=== PATIENT | male | born 1930 | race Caucasian/White ===

== ENCOUNTER 2016-06-27 16:38 | Inpatient (IN) ==
[2016-06-28 05:24] LABS: INR 4.1
[2016-06-28 05:26] LABS: Activated Partial Thrombo Time 52.2 Seconds (26.0-36.0)
[2016-06-28 05:32] LABS: BUN/Creatinine Ratio 19 (6-26); Blood Urea Nitrogen 17 mg/dL (8-26); Calcium 9.1 mg/dL (8.6-10.8); Carbon Dioxide 22 mEq/L (19-29); Chloride 108 mEq/L (98-109); Glucose 110 mg/dL (70-99); Osmolality,Calculated 294 (280-300); Potassium 3.8 mEq/L (3.5-4.5); Sodium 141 mEq/L (136-145); eGFR For African Americans > 60 (> 60); eGFR For Non-African Americans > 60 (> 60)
[2016-06-28 05:34] LABS: Basophils # 0.1 K/mcL (0.0-0.2); Basophils % 0.6 %; Eosinophils # 0.3 K/mcL (0.0-0.6); Eosinophils % 2.7 %; Hematocrit 44.3 % (37.5-50.1); Hemoglobin 14.7 g/dL (12.9-16.9); Immature Granulocytes % 0.4 % (0-4); Lymphocytes # 1.7 K/mcL (0.6-4.6); Lymphocytes % 16.5 %; Mean Corpuscular HGB Conc 33.2 g/dL (31.6-35.5); Mean Corpuscular Hemoglobin 27.4 pg (28.0-33.3); Mean Corpuscular Volume 82.6 fL (83.0-100.0); Mean Platelet Volume 11.6 fL (9.4-12.4); Monocytes % 9.4 %; Neutrophils # 7.3 K/mcL (1.6-8.9); Platelet Count 205 K/mcL (140-400); Red Blood Count 5.36 M/mcL (4.19-5.50); Red Cell Distribution Width 13.5 % (11.5-14.5); Segmented Neutrophils % 70.4 %
[2016-06-28 05:35] LABS: Prothrombin Time 46.6 Seconds (9.4-12.1)
[2016-06-28] MEDS: Aspirin 81 MG TAB.CHEW PO SCH (08:43)
[2016-06-28] MEDS: Loratadine 10 MG TABLET PO SCH (08:43)
[2016-06-28] MEDS: *HR* Digoxin 0.25 MG TABLET PO SCH (08:45)
--- NOTE | 2016-06-28 11:26 | Internal Med History&Physical ---
Date of Encounter: 06/28/16 Time of Encounter: 11:24 Assessment and Plan (1) H/O: CVA (cerebrovascular accident) Current visit: No Status: Acute (2) Physical deconditioning Current visit: No Status: Acute Patient is deconditioning from recent CVA. Internal Medicine - H&P: HPI Chief complaint: Patient had a CVA. [facility] Admitted From: Hospital to Hospital Transfer History of present illness: Mr. Noe is a 86 year old male History of a recent CVA as here for rehabilitation. Past Med Surg Social Fam HX - Past Medical History Medical history: atrial fibrillation, CVA, hyperlipidemia, hypertension Psychiatric history: no psych history - Past Surgical History Surgical History: arthroscopy, pacemaker/AICD - Social History Smoking Status: Former smoker - Family History Mother History Unknown: Yes Father History Unknown: Yes Internal Medicine - H&P: Meds Digoxin [Lanoxin] 0.25 mg PO DAILY 04/14/15 [History] Donepezil [Aricept] 5 mg PO HS 04/14/15 [History] Metoprolol [Lopressor] 50 mg PO BID 04/14/15 [History] Omeprazole [PriLOSEC] 40 mg PO DAILY 04/14/15 [History] Simvastatin [Zocor] 40 mg PO HS 04/14/15 [History] Tamsulosin [Flomax] 0.4 mg PO DAILY 04/14/15 [History] Warfarin [Coumadin] 2.5 mg PO 1800 04/14/15 [History] Aspirin 81 mg PO DAILY 06/27/16 [History] Cetirizine HCl [Zyrtec] 10 mg PO DAILY 06/27/16 [History] TraZODone 50 mg PO HS 06/27/16 [History] Allergies No Known Allergies Allergy (Verified 04/14/15 19:27) All Systems PM: A 10-system review of systems was performed and is negative for pertinent findings except as documented above in the HPI. - Constitutional Vitals: Temp Pulse Resp BP Pulse Ox 98.1 F 61 16 153/77 95 06/28/16 07:33 06/28/16 07:33 06/28/16 07:33 06/28/16 07:33 06/28/16 07:33 - Head Head exam: Present: atraumatic, normal inspection, normocephalic - Neck Neck exam general surgery: Present: supple, trachea midline. Absent: lymphadenopathy Internal Med - H&P Results - Labs CBC & Chem 7: 06/28/16 05:15 06/28/16 05:15 Labs: Short CBC 06/28/16 Range/Units 05:15 WBC 10.3 (4.3-11.1) K/mcL Hgb 14.7 (12.9-16.9) g/dL Hct 44.3 (37.5-50.1) % Plt Count 205 (140-400) K/mcL Neutrophils # 7.3 (1.6-8.9) K/mcL BMP 06/28/16 05:15 Sodium 141 Potassium 3.8 Chloride 108 Carbon Dioxide 22 BUN 17 Creatinine 0.88 Glucose 110 H Calcium 9.1 Lab looks good
[2016-06-29 05:28] LABS: INR 3.7; Prothrombin Time 41.5 Seconds (9.4-12.1)
[2016-06-29] MEDS: Aspirin 81 MG TAB.CHEW PO SCH (08:08)
[2016-06-29] MEDS: *HR* Digoxin 0.25 MG TABLET PO SCH (08:08)
[2016-06-29] MEDS: Loratadine 10 MG TABLET PO SCH (08:08)
--- NOTE | 2016-06-29 13:20 | Internal Med Progress Note ---
Date of Encounter: 06/29/16 Time of Encounter: 13:18 - Assessment and plan (1) H/O: CVA (cerebrovascular accident) Current Visit: No Status: Acute Assessment and plan: Patient's working with PT OT TR and speech . (2) Physical deconditioning Current Visit: No Status: Acute Assessment and plan: Patient very deconditioned - Time Spent With Patient less than 15 minutes - Subjective Interval history: Jason Strine but he is obviously very deconditioned and has not done much prior to this episode and gets tired very easily. We did discuss his care at patient care conference and Dr. Briones has elected to start some - Constitutional Vitals: Temp Pulse Resp BP Pulse Ox 97.5 F L 84 18 172/63 95 06/29/16 07:34 06/29/16 07:34 06/29/16 07:34 06/29/16 07:34 06/29/16 07:34 - Head Head exam: Present: atraumatic, normal inspection, normocephalic - Neck Neck exam general surgery: Present: supple, trachea midline. Absent: lymphadenopathy - Respiratory Respiratory exam: Present: CTAB. Absent: accessory muscle use, rales, rhonchi, wheezes - Cardiovascular Cardiovascular exam: Present: RRR, +S1, +S2. Absent: diastolic murmur, gallop, rubs, systolic murmur Internal Medicine: Result - Labs CBC & Chem 7: 06/28/16 05:15 06/28/16 05:15 Labs: Labs doing okay - ABG Interpretation ABG results: PT/INR, D-dimer PT 41.5 Seconds (9.4-12.1) H 06/29/16 05:20 Consult Discharge Plan - Plan Referrals: Jody Blanco, SCALE MANAGER [Primary Care Provider] -
--- NOTE | 2016-06-29 15:03 | Physcial Medicine-Consult Note ---
Date of Encounter: 06/29/16 Time of Encounter: 15:01 Physical Medicine - AP (1) H/O: CVA (cerebrovascular accident) Status: Acute Assessment and plan: 1. Rehab: Mr. Noe initially had significant problems with hypersomnolence on admission. Currently, he is more alert and involved with therapy. We will continue with intensive PT/OT/ST/TR. Full assessment of his functional status was limited due to somnolence initially. We will continue with therapy and determine a discharge date next week. Code(s): Z86.73 - Personal history of transient ischemic attack (TIA), and cerebral infarction without residual deficits SNOMED Code(s): 361883522 Physical Medicine - HPI - Data of Consult Consult date: 06/29/16 Requesting Physician: Kannan Castillo DO Primary Care Provider: Kelli Lopez - Consult Narrative Reason for consult: CVA History of present illness: Mr. Noe is a 86 year old male who initially presented to [facility] with a 3 day history of confusion, slurred speech, ataxia and somnolence. 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 Patient was unable to undergo mri due to PPM. Patient was continued on coumadin and aspririn. He was stabilized and transferred for inpatient rehabilitation. CC: Kannan Castillo DO Past Med Surg Social Fam HX - Past Medical History Medical history: atrial fibrillation, CVA, hyperlipidemia, hypertension Psychiatric history: no psych history - Past Surgical History Surgical History: arthroscopy, pacemaker/AICD - Social History Smoking Status: Former smoker - Family History Mother History Unknown: Yes Father History Unknown: Yes Medications and Allergies Digoxin [Lanoxin] 0.25 mg PO DAILY 04/14/15 [History] Donepezil [Aricept] 5 mg PO HS 04/14/15 [History] Metoprolol [Lopressor] 50 mg PO BID 04/14/15 [History] Omeprazole [PriLOSEC] 40 mg PO DAILY 04/14/15 [History] Simvastatin [Zocor] 40 mg PO HS 04/14/15 [History] Tamsulosin [Flomax] 0.4 mg PO DAILY 04/14/15 [History] Warfarin [Coumadin] 2.5 mg PO 1800 04/14/15 [History] Aspirin 81 mg PO DAILY 06/27/16 [History] Cetirizine HCl [Zyrtec] 10 mg PO DAILY 06/27/16 [History] TraZODone 50 mg PO HS 06/27/16 [History] Allergies No Known Allergies Allergy (Verified 04/14/15 19:27) - Constitutional Constitutional: Present: daytime sleepiness. Absent: headache(s) - Cardiovascular Cardiovascular: Absent: chest pain, diaphoresis, dyspnea - Respiratory Respiratory: Absent: dyspnea - Gastrointestinal Gastrointestinal: Absent: abdominal pain, change in bowel habits - Musculoskeletal Musculoskeletal: Present: abnormal gait - Neurological Neurological: Present: confusion, lack of coordination Physical Medicine - Exam - Constitutional Vitals: Temp Pulse Resp BP Pulse Ox 97.5 F L 84 18 172/63 95 06/29/16 07:34 06/29/16 07:34 06/29/16 13:00 06/29/16 07:34 06/29/16 07:34 Exam: Patient is alert, very hard of hearing. He answers questions appropriately. Able to follow 1 step commands. - Head Head exam: Present: normal inspection, normocephalic Additional comments: honing machine set up operator intact. No facial droop. - Respiratory Respiratory exam: Present: CTAB - Cardiovascular Cardiovascular exam: Present: RRR - GI/Abdominal GI/Abdominal exam: Present: normal bowel sounds, soft. Absent: tenderness - Extremities Exam Extremities exam: Absent: calf tenderness Additional comments: Reflexes are absent in the upper and lower limbs. Motor strength is 5/5 in the bilateral upper and lower limbs. Physical Medicine - Results - Labs CBC & Chem 7: 06/28/16 05:15 06/28/16 05:15 Consult Discharge Plan - Plan Referrals: Jody Blanco, STOCKROOM INVENTORY CLERK [Primary Care Provider] -
--- NOTE | 2016-06-29 16:40 | Psychological Evaluation ---
Date of Encounter: 06/29/16 Time of Encounter: 15:00 History of Present Illness History of present illness: Mr. Noe is an 86 year old male admitted to [facility] for rehabilitation following a recent CVA. Mr. Noe was seen on this date to assess his current emotional functioning as he has been noted to express thoughts of /dying. Past Medical History Medical history: Significant for atrial fibrillation, hyperlipidemia, HTN, and CVA. - Psychiatric History Additional Psychiatric History: There is no history of psychiatric hospitalization but Mr. Noe reported a history of depression. He denied current or past thoughts of suicide and he denied any current suicidal intentions or plans. He acknowledged that he wants to "get my ass in the graveyard" but stated that he would never take his own life. There is no history of a suicide attempt. Home Medications and Allergies Digoxin [Lanoxin] 0.25 mg PO DAILY 04/14/15 [History] Donepezil [Aricept] 5 mg PO HS 04/14/15 [History] Metoprolol [Lopressor] 50 mg PO BID 04/14/15 [History] Omeprazole [PriLOSEC] 40 mg PO DAILY 04/14/15 [History] Simvastatin [Zocor] 40 mg PO HS 04/14/15 [History] Tamsulosin [Flomax] 0.4 mg PO DAILY 04/14/15 [History] Warfarin [Coumadin] 2.5 mg PO 1800 04/14/15 [History] Aspirin 81 mg PO DAILY 06/27/16 [History] Cetirizine HCl [Zyrtec] 10 mg PO DAILY 06/27/16 [History] TraZODone 50 mg PO HS 06/27/16 [History] Allergies No Known Allergies Allergy (Verified 04/14/15 19:27) Social History - Social History Social History: Mr. Noe was living in a shelter/senior housing prior to his stroke. His reportedly 4-5 years ago. They had 6 children, 3 of whom are still living (2 daughters and 1 son). Mr. Noe reported that he is close to one of his daughters (Angelika) and his son (Venancio) but not as close to his other daughter (Ana). He stated that Angelika manages his finances and personal affairs. Prior to this hospitalization, he lived alone with assistance from Angelika. He was able to prepared his own breakfast but Angelika would cook his other meals and visit daily. He spent his days watching TV because "can't do much". 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 His dream [place] to [place] but he recognizes that this is unlikely. - Tobacco Use Smoking Status: Former smoker Cognitive/Emotional Assessment - Emotional Status Additional Findings: Mr. Noe was alert, attentive, cooperative and pleasant. He was oriented for person (name, age and birthdate), place (town) and partially for time (knew the year but not the month or date). Speech was muffled and unintelligible at times. He has a hearing impairment and wears hearing aids. He was noted to curse freely. Thought processes were coherent, logical and goal-directed. There were no signs of delusional ideation or perceptual disturbances. Mood was depressed and affect was tearful. He presented as pessimistic about his future and unhappy about his life, his health and his limitations. He also expressed his lack of jasmyne in the medical profession/physicians. 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 Noe was provided information regarding stroke recovery and he was provided emotional supportive counseling to address his feelings of discouragement. Will continue to follow Mr. Noe and provide individual adjustment counseling/emotional support while he is an inpatient at [facility]. Procedures - Session Time Session Start Time: 15:00 Session Stop Time: 15:35
[2016-06-29] MEDS: *HR* Warfarin 2.5 MG TABLET PO SCH (18:19)
[2016-06-30 07:49] LABS: Prothrombin Time 33.8 Seconds (9.4-12.1)
[2016-06-30] MEDS: Aspirin 81 MG TAB.CHEW PO SCH (08:14)
[2016-06-30] MEDS: Loratadine 10 MG TABLET PO SCH (08:14)
[2016-06-30] MEDS: *HR* Digoxin 0.25 MG TABLET PO SCH (08:14)
--- NOTE | 2016-06-30 11:30 | Internal Med Progress Note ---
Date of Encounter: 06/30/16 Time of Encounter: 11:28 - Assessment and plan (1) H/O: CVA (cerebrovascular accident) Current Visit: No Status: Acute Assessment and plan: CVA. His speech is still little bit sick and he is rather slow in responding but is working with the therapist. But he did say just wants to go home (2) Physical deconditioning Current Visit: No Status: Acute - Time Spent With Patient less than 15 minutes - Subjective Interval history: but he is obviously very deconditioned and has not done much prior to this episode and gets tired very easily. We did discuss his care at patient care conference and . - Constitutional Vitals: Temp Pulse Resp BP Pulse Ox 98.0 F 80 16 149/73 95 06/30/16 07:40 06/30/16 07:40 06/30/16 07:43 06/30/16 07:40 06/30/16 07:40 - Head Head exam: Present: atraumatic, normocephalic - Neck Neck exam general surgery: Present: supple, trachea midline. Absent: lymphadenopathy - Respiratory Respiratory exam: Present: CTAB. Absent: accessory muscle use, rales, rhonchi, wheezes - Cardiovascular Cardiovascular exam: Present: RRR, +S1, +S2. Absent: diastolic murmur, gallop, rubs, systolic murmur Internal Medicine: Result - Labs CBC & Chem 7: 06/28/16 05:15 06/28/16 05:15 Labs: Lab looks good - ABG Interpretation ABG results: PT/INR, D-dimer PT 33.8 Seconds (9.4-12.1) H 06/30/16 07:30 Consult Discharge Plan - Plan Referrals: Jody Blanco, REFINERY OPERATOR POL[employer]MERIZATION PLANT [Primary Care Provider] -
[2016-06-30] MEDS: *HR* Warfarin 2.5 MG TABLET PO SCH (16:46)
[2016-06-30] MEDS: MOM Conc 10 ML UD.LIQ PO SCH (18:14)
[2016-07-01 05:11] LABS: INR 2.6; Prothrombin Time 29.3 Seconds (9.4-12.1)
[2016-07-01] MEDS: *HR* Digoxin 0.25 MG TABLET PO SCH (08:35)
[2016-07-01] MEDS: Loratadine 10 MG TABLET PO SCH (08:35)
[2016-07-01] MEDS: Aspirin 81 MG TAB.CHEW PO SCH (08:35)
[2016-07-01] MEDS: MOM Conc 10 ML UD.LIQ PO SCH (08:36)
--- NOTE | 2016-07-01 14:21 | Internal Med Progress Note ---
Date of Encounter: 07/01/16 Time of Encounter: 14:19 - Assessment and plan (1) H/O: CVA (cerebrovascular accident) Current Visit: Yes Status: Acute Assessment and plan: Patient's working with (2) Physical deconditioning Current Visit: Yes Status: Acute Assessment and plan: Obviously very deconditioned gentleman - Time Spent With Patient less than 15 minutes - Subjective Interval history: but he is obviously very deconditioned and has not done much prior to this episode and gets tired very easily. We did discuss his care at patient care conference and . Patient is working with the therapist - Constitutional Vitals: Temp Pulse Resp BP Pulse Ox 97.7 F 65 18 119/67 97 07/01/16 07:23 07/01/16 07:23 07/01/16 07:23 07/01/16 07:23 07/01/16 07:23 - Head Head exam: Present: atraumatic, normocephalic - Neck Neck exam general surgery: Present: supple, trachea midline. Absent: lymphadenopathy - Respiratory Respiratory exam: Present: CTAB. Absent: accessory muscle use, rales, rhonchi, wheezes - Cardiovascular Cardiovascular exam: Present: RRR, +S1, +S2. Absent: diastolic murmur, gallop, rubs, systolic murmur - GI/Abdominal GI/Abdominal exam: Present: normal bowel sounds, soft, no peritoneal signs. Absent: distended, tenderness Internal Medicine: Result - Labs CBC & Chem 7: 06/28/16 05:15 06/28/16 05:15 Labs: Lab looks stable - ABG Interpretation ABG results: PT/INR, D-dimer PT 29.3 Seconds (9.4-12.1) H 07/01/16 04:45 Consult Discharge Plan - Plan Referrals: Jody Blanco, RECONCILIATION COORDINATOR [Primary Care Provider] -
[2016-07-01] MEDS: *HR* Warfarin 2.5 MG TABLET PO SCH (18:29)
[2016-07-02 05:57] LABS: INR 2.3; Prothrombin Time 25.1 Seconds (9.4-12.1)
[2016-07-02] MEDS: Aspirin 81 MG TAB.CHEW PO SCH (08:24)
[2016-07-02] MEDS: *HR* Digoxin 0.25 MG TABLET PO SCH (08:24)
[2016-07-02] MEDS: Loratadine 10 MG TABLET PO SCH (08:24)
[2016-07-02] MEDS: MOM Conc 10 ML UD.LIQ PO SCH (08:27)
--- NOTE | 2016-07-02 13:23 | Internal Med Progress Note ---
Date of Encounter: 07/02/16 Time of Encounter: 13:21 - Assessment and plan (1) H/O: CVA (cerebrovascular accident) Current Visit: Yes Status: Acute Assessment and plan: History of CVA with residual right-sided weakness. PT OT working on improving balance, gait, transfer and improving ADL. (2) Physical deconditioning Current Visit: Yes Status: Acute Assessment and plan: Somnolence an issue with PT OT n - Time Spent With Patient less than 15 minutes - Subjective Interval history: No new voiced complaint. No shortness of breath. No chest pain. No headache. Complains of feeling sleepy. Complains of back pain. - Constitutional Vitals: Temp Pulse Resp BP Pulse Ox 98.4 F 77 20 145/75 99 07/02/16 06:44 07/02/16 06:44 07/02/16 06:44 07/02/16 06:44 07/02/16 06:44 General appearance: Present: A&O X 2, mild distress, answers questions appropriately - Respiratory Respiratory exam: Present: CTAB. Absent: accessory muscle use, rales, rhonchi, wheezes - Cardiovascular Cardiovascular exam: Present: RRR, +S1, +S2. Absent: diastolic murmur, gallop, rubs, systolic murmur - GI/Abdominal GI/Abdominal exam: Present: normal bowel sounds, soft, no peritoneal signs. Absent: distended, tenderness - Extremities Exam Extremities exam: Present: warm, radial pulses palpable and symetrical. Absent : calf tenderness, cyanotic, pedal edema - Back Exam Back exam: Present: tenderness - Skin Skin exam: Present: dry, intact Internal Medicine: Result - Labs CBC & Chem 7: 06/28/16 05:15 06/28/16 05:15 - ABG Interpretation ABG results: PT/INR, D-dimer PT 25.1 Seconds (9.4-12.1) H 07/02/16 04:50 Consult Discharge Plan - Plan Referrals: Jody Blanco CNP [Primary Care Provider] -
[2016-07-02] MEDS: *HR* Warfarin 2.5 MG TABLET PO SCH (17:37)
[2016-07-03 05:44] LABS: INR 2.3; Prothrombin Time 25.7 Seconds (9.4-12.1)
[2016-07-03] MEDS: *HR* HYDROcodone/Acet 5/325 mg TABLET PO PRN ×3 (06:55→21:22)
[2016-07-03] MEDS: Aspirin 81 MG TAB.CHEW PO SCH (07:57)
[2016-07-03] MEDS: MOM Conc 10 ML UD.LIQ PO SCH (07:57)
[2016-07-03] MEDS: *HR* Digoxin 0.25 MG TABLET PO SCH (07:57)
[2016-07-03] MEDS: Loratadine 10 MG TABLET PO SCH (07:57)
[2016-07-03] MEDS: *HR* Warfarin 2.5 MG TABLET PO SCH (17:10)
[2016-07-04] MEDS: *HR* HYDROcodone/Acet 5/325 mg TABLET PO PRN ×2 (04:12→15:10)
[2016-07-04 06:19] LABS: Basophils % 0.4 %; Eosinophils # 0.4 K/mcL (0.0-0.6); Eosinophils % 4.1 %; Hemoglobin 14.4 g/dL (12.9-16.9); INR 2.6; Immature Granulocytes % 0.5 % (0-4); Lymphocytes # 1.6 K/mcL (0.6-4.6); Lymphocytes % 16.4 %; Mean Corpuscular HGB Conc 32.7 g/dL (31.6-35.5); Mean Corpuscular Hemoglobin 27.5 pg (28.0-33.3); Mean Platelet Volume 11.7 fL (9.4-12.4); Monocytes % 9.8 %; Neutrophils # 6.8 K/mcL (1.6-8.9); Platelet Count 204 K/mcL (140-400); Prothrombin Time 29.3 Seconds (9.4-12.1); Red Blood Count 5.24 M/mcL (4.19-5.50); Red Cell Distribution Width 13.5 % (11.5-14.5); Segmented Neutrophils % 68.8 %
[2016-07-04 06:31] LABS: BUN/Creatinine Ratio 24 (6-26); Blood Urea Nitrogen 20 mg/dL (8-26); Calcium 8.8 mg/dL (8.6-10.8); Carbon Dioxide 22 mEq/L (19-29); Chloride 108 mEq/L (98-109); Glucose 110 mg/dL (70-99); Osmolality,Calculated 293 (280-300); Potassium 3.9 mEq/L (3.5-4.5); Sodium 140 mEq/L (136-145); eGFR For African Americans > 60 (> 60); eGFR For Non-African Americans > 60 (> 60)
[2016-07-04] MEDS: Loratadine 10 MG TABLET PO SCH (08:05)
[2016-07-04] MEDS: Aspirin 81 MG TAB.CHEW PO SCH (08:05)
[2016-07-04] MEDS: *HR* Digoxin 0.25 MG TABLET PO SCH (08:05)
[2016-07-04] MEDS: MOM Conc 10 ML UD.LIQ PO SCH (08:05)
--- NOTE | 2016-07-04 14:05 | Internal Med Progress Note ---
Date of Encounter: 07/04/16 Time of Encounter: 14:03 - Assessment and plan (1) H/O: CVA (cerebrovascular accident) Current Visit: Yes Status: Acute Assessment and plan: I need to make sure there is no minimal extension of his CVA. (2) Physical deconditioning Current Visit: Yes Status: Acute Assessment and plan: He had been actually advancing his physical arm duration of tolerance to therapy. - Time Spent With Patient less than 15 minutes - Subjective Interval history: Staff today felt like patient lost ground. He was and is able to alert as he had been. We will check CT to rule out any sort of extension and also start Provigil. Stated that she will give him awake to do their session. - Constitutional Vitals: Temp Pulse Resp BP Pulse Ox 97.7 F 77 17 174/84 98 07/04/16 07:00 07/04/16 07:00 07/04/16 07:00 07/04/16 07:00 07/04/16 07:00 General appearance: Present: A&O X 2, mild distress, answers questions appropriately - Head Head exam: Present: atraumatic, normocephalic - Neck Neck exam general surgery: Present: supple, trachea midline. Absent: lymphadenopathy - Respiratory Respiratory exam: Present: CTAB. Absent: accessory muscle use, rales, rhonchi, wheezes - Cardiovascular Cardiovascular exam: Present: RRR, +S1, +S2. Absent: diastolic murmur, gallop, rubs, systolic murmur - GI/Abdominal GI/Abdominal exam: Present: normal bowel sounds, soft, no peritoneal signs. Absent: distended, tenderness Internal Medicine: Result - Labs CBC & Chem 7: 07/04/16 05:35 07/04/16 05:35 Labs: Short CBC 07/04/16 Range/Units 05:35 WBC 9.9 (4.3-11.1) K/mcL Hgb 14.4 (12.9-16.9) g/dL Hct 44.0 (37.5-50.1) % Plt Count 204 (140-400) K/mcL Neutrophils # 6.8 (1.6-8.9) K/mcL BMP 07/04/16 05:35 Sodium 140 Potassium 3.9 Chloride 108 Carbon Dioxide 22 BUN 20 Creatinine 0.84 Glucose 110 H Calcium 8.8 Lab looks good - ABG Interpretation ABG results: PT/INR, D-dimer PT 29.3 Seconds (9.4-12.1) H 07/04/16 05:35 Consult Discharge Plan - Plan Referrals: Jody Blanco, MATH SPECIALIST [Primary Care Provider] -
[2016-07-04] MEDS ORDERED: Ibuprofen 800 MG TABLET PO ONE (14:12)
[2016-07-04] MEDS: *HR* Warfarin 2.5 MG TABLET PO SCH (18:24)
[2016-07-05 06:53] LABS: INR 2.9; Prothrombin Time 32.7 Seconds (9.4-12.1)
[2016-07-05] MEDS: Aspirin 81 MG TAB.CHEW PO SCH (08:07)
[2016-07-05] MEDS: *HR* Digoxin 0.25 MG TABLET PO SCH (08:08)
[2016-07-05] MEDS: *HR* HYDROcodone/Acet 5/325 mg TABLET PO PRN (08:08)
[2016-07-05] MEDS: Loratadine 10 MG TABLET PO SCH (08:08)
[2016-07-05] MEDS: MOM Conc 10 ML UD.LIQ PO SCH (08:09)
--- NOTE | 2016-07-05 11:11 | Internal Med Progress Note ---
Date of Encounter: 07/05/16 Time of Encounter: 11:09 - Assessment and plan (1) H/O: CVA (cerebrovascular accident) Current Visit: Yes Status: Acute Assessment and plan: Patient's here for deconditioning and CVA. (2) Physical deconditioning Current Visit: Yes Status: Acute Assessment and plan: Bone is deconditioned but did not do anything at home prior to this. - Time Spent With Patient less than 15 minutes - Subjective Interval history: Patient seems more alert today. In addition while there are changes the CT showed only chronic changes nothing acute. All CVAs and small vessel disease are noted - Constitutional Vitals: Temp Pulse Resp BP Pulse Ox 97.9 F 58 20 167/83 98 07/05/16 07:00 07/05/16 07:00 07/05/16 07:00 07/05/16 07:00 07/05/16 07:00 General appearance: Present: A&O X 2, mild distress, answers questions appropriately - Head Head exam: Present: atraumatic, normocephalic - Neck Neck exam general surgery: Present: supple, trachea midline. Absent: lymphadenopathy - Respiratory Respiratory exam: Present: CTAB. Absent: accessory muscle use, rales, rhonchi, wheezes - Cardiovascular Cardiovascular exam: Present: RRR, +S1, +S2. Absent: diastolic murmur, gallop, rubs, systolic murmur - GI/Abdominal GI/Abdominal exam: Present: normal bowel sounds, soft, no peritoneal signs. Absent: distended, tenderness Internal Medicine: Result - Labs CBC & Chem 7: 07/04/16 05:35 07/04/16 05:35 Labs: Lab actually looks good - ABG Interpretation ABG results: PT/INR, D-dimer PT 32.7 Seconds (9.4-12.1) H 07/05/16 06:30 - Impressions Impressions Head CT 07/04/16 14:00 IMPRESSION: No acute intracranial abnormality. Sequela of chronic small vessel ischemic disease is evident. D/ / 07/04/2016 15:48:08 Palomo Delgado MD / min Interpreting Provider: Palomo Delgado MD Consult Discharge Plan - Plan Referrals: Jody Blanco, SHAMPOO TECHNICIAN [Primary Care Provider] -
[2016-07-05] MEDS: *HR* Warfarin 2.5 MG TABLET PO SCH (17:46)
[2016-07-06] MEDS: *HR* HYDROcodone/Acet 5/325 mg TABLET PO PRN ×2 (01:38→08:39)
[2016-07-06 05:30] LABS: INR 2.8; Prothrombin Time 31.5 Seconds (9.4-12.1)
[2016-07-06] MEDS: Aspirin 81 MG TAB.CHEW PO SCH (08:38)
[2016-07-06] MEDS: *HR* Digoxin 0.25 MG TABLET PO SCH (08:38)
[2016-07-06] MEDS: Loratadine 10 MG TABLET PO SCH (08:39)
[2016-07-06] MEDS: MOM Conc 10 ML UD.LIQ PO SCH (08:40)
--- NOTE | 2016-07-06 12:28 | Physical Med Progress Note ---
Date of Encounter: 07/06/16 Time of Encounter: 12:21 Assessment and Plan (1) H/O: CVA (cerebrovascular accident) Current Visit: Yes Status: Acute Physical Medicine-PN: Subj Interval history: PMR PCC Note Patient has had some interval improvement. He was able to walk in the parallel bars today. Fatigue remains a major issue. Patient is suffering from some depression. Patient is max A for transfers. ADLs vary from mod I to max assist. He has had some improvement in his hand coordination. Patient requires verbal cues and supervision for feeding. Patient varies in his level arousal and function from day to day. Patient complains of lower back pain which impairs his function. - Constitutional Vitals: Vital Signs Temp Pulse Resp BP Pulse Ox 07/06/16 06:56 97.5 F L 63 16 160/71 97 07/05/16 19:00 98.6 F 69 14 160/66 94 L Intake and Output 07/05/16 07/06/16 07/06/16 23:59 07:59 15:59 Other: # Voids 2 # Urine Diapers 2 Physical Medicine-PN: Obj Data - Labs CBC & Chem 7: 07/04/16 05:35 07/04/16 05:35 Labs: Laboratory Results - last 24 hr 07/06/16 04:40 PT 31.5 H INR 2.8 - ABG Interpretation ABG results: PT/INR, D-dimer PT 31.5 Seconds (9.4-12.1) H 07/06/16 04:40 Consult Discharge Plan - Plan Referrals: Jody Blanco MAINTENANCE COORDINATOR [Primary Care Provider] -
--- NOTE | 2016-07-06 14:46 | Rehab Psychology Progress Note ---
Date of Encounter: 07/06/16 Time of Encounter: 11:30 Subjective - Patient Report Patient Report: Mr. Noe reported that he doesn't feel he has made any progress in rehabilitation and "haven't changed my mind" about /dying. He stated that his discharge preference is "to go [place] the cemetery" and "my choice is ". He expressed concern that he has become a "burden" to his family especially his daughter and made comments of having regrets in his life ("I could have done better."). Objective - Comments Functional Status Comments: Mr. Noe appeared tired and spoke in a muffled, low tone of voice. He reported feeling sad/unhappy and that he feels more unhappy about his life when he has increased back pain. Session focused on Mr. Noe's worry about being a "burden" and we talked about the love and care he showed his prior to her . He was given feedback about the love he showed others in his life and learning to accept love back from others. He was able to joke and show good humor ("You have a good heart"....Mr. Noe's response "no, pacemaker"). 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
[2016-07-06] MEDS: *HR* Warfarin 2.5 MG TABLET PO SCH (17:01)
[2016-07-07 05:29] LABS: Prothrombin Time 33.9 Seconds (9.4-12.1)
[2016-07-07] MEDS: Aspirin 81 MG TAB.CHEW PO SCH (08:21)
[2016-07-07] MEDS: MOM Conc 10 ML UD.LIQ PO SCH (08:21)
[2016-07-07] MEDS: *HR* Digoxin 0.25 MG TABLET PO SCH (08:23)
[2016-07-07] MEDS: Loratadine 10 MG TABLET PO SCH (08:23)
--- NOTE | 2016-07-07 13:52 | Internal Med Progress Note ---
Date of Encounter: 07/07/16 Time of Encounter: 13:50 - Assessment and plan (1) H/O: CVA (cerebrovascular accident) Current Visit: Yes Status: Acute Assessment and plan: Patient is here due to recent CVA (2) Physical deconditioning Current Visit: Yes Status: Acute Assessment and plan: Obvious deconditioning which occurred prior to the CVA - Time Spent With Patient less than 15 minutes - Subjective Interval history: Patient seems more alert today. In addition while there are changes the CT showed only chronic changes nothing acute. All CVAs and small vessel disease are noted. Only changes ordered x-ray with his complaints of low back pain. And I think this is chronic probably degenerative but wanted to double check - Constitutional Vitals: Temp Pulse Resp BP Pulse Ox 97.3 F L 62 16 168/78 96 07/07/16 06:00 07/07/16 06:00 07/07/16 06:00 07/07/16 06:00 07/07/16 06:00 General appearance: Present: A&O X 2, mild distress, answers questions appropriately - Head Head exam: Present: atraumatic, normal inspection, normocephalic - Neck Neck exam general surgery: Present: supple, trachea midline. Absent: lymphadenopathy - Respiratory Respiratory exam: Present: CTAB. Absent: accessory muscle use, rales, rhonchi, wheezes - Cardiovascular Cardiovascular exam: Present: RRR, +S1, +S2. Absent: diastolic murmur, gallop, rubs, systolic murmur - GI/Abdominal GI/Abdominal exam: Present: normal bowel sounds, soft, no peritoneal signs. Absent: distended, tenderness Internal Medicine: Result - Labs CBC & Chem 7: 07/04/16 05:35 07/04/16 05:35 Labs: Labs okay - ABG Interpretation ABG results: PT/INR, D-dimer PT 33.9 Seconds (9.4-12.1) H 07/07/16 05:15 - Impressions Impressions Thoracic Spine X-Ray 07/07/16 11:01 IMPRESSION: 1. No acute osseous abnormality of the thoracic spine. Mild to moderate multilevel spondylosis. 2. No acute osseous abnormality of the lumbar spine. D/ / Shahid Minor MD / Shahid Minor MD Interpreting Provider: Shahid Minor MD Lumbar Spine X-Ray 07/07/16 12:13 IMPRESSION: 1. No acute osseous abnormality of the thoracic spine. Mild to moderate multilevel spondylosis. 2. No acute osseous abnormality of the lumbar spine. D/ / Shahid Minor MD / Shahid Minor MD Interpreting Provider: Shahid Minor MD Consult Discharge Plan - Plan Referrals: Jody Blanco, HYDROMETER FINISHER [Primary Care Provider] -
[2016-07-07] MEDS: *HR* Warfarin 2 MG TABLET PO SCH (18:32)
[2016-07-07] MEDS: *HR* HYDROcodone/Acet 5/325 mg TABLET PO PRN (20:45)
[2016-07-08 05:39] LABS: INR 3.2; Prothrombin Time 35.2 Seconds (9.4-12.1)
[2016-07-08] MEDS: MOM Conc 10 ML UD.LIQ PO SCH (08:33)
[2016-07-08] MEDS: Aspirin 81 MG TAB.CHEW PO SCH (08:33)
[2016-07-08] MEDS: Loratadine 10 MG TABLET PO SCH (08:34)
[2016-07-08] MEDS: *HR* Digoxin 0.25 MG TABLET PO SCH (08:34)
--- NOTE | 2016-07-08 13:14 | Internal Med Progress Note ---
Date of Encounter: 07/08/16 Time of Encounter: 14:00 - Assessment and plan (1) H/O: CVA (cerebrovascular accident) Current Visit: Yes Status: Acute Assessment and plan: Mr. Olsen is here for CVA and is doing rather well considering everything (2) Physical deconditioning Current Visit: Yes Status: Acute Assessment and plan: Very deconditioned because since his he has not done anything at all - Time Spent With Patient less than 15 minutes - Subjective Interval history: I believe today's the best data patient's acidosis is being here. He is cooperating on all levels with the therapy staff and in addition is fed himself today - Constitutional Vitals: Temp Pulse Resp BP Pulse Ox 97.0 F L 64 18 142/80 98 07/08/16 07:00 07/08/16 07:00 07/08/16 07:00 07/08/16 07:00 07/08/16 07:00 General appearance: Present: A&O X 2, mild distress, answers questions appropriately - Head Head exam: Present: atraumatic, normal inspection, normocephalic - Neck Neck exam general surgery: Present: supple, trachea midline. Absent: lymphadenopathy - Respiratory Respiratory exam: Present: CTAB. Absent: accessory muscle use, rales, rhonchi, wheezes - Cardiovascular Cardiovascular exam: Present: RRR, +S1, +S2. Absent: diastolic murmur, gallop, rubs, systolic murmur Internal Medicine: Result - Labs CBC & Chem 7: 07/04/16 05:35 07/04/16 05:35 Labs: Lab is stable - ABG Interpretation ABG results: PT/INR, D-dimer PT 35.2 Seconds (9.4-12.1) H 07/08/16 05:15 Consult Discharge Plan - Plan Referrals: Jody Blanco, MANAGED CARE COORDINATOR [Primary Care Provider] -
[2016-07-08] MEDS: *HR* Warfarin 2 MG TABLET PO SCH (17:31)
[2016-07-09 05:35] LABS: INR 2.8; Prothrombin Time 30.9 Seconds (9.4-12.1)
[2016-07-09] MEDS: *HR* HYDROcodone/Acet 5/325 mg TABLET PO PRN (05:46)
[2016-07-09] MEDS: *HR* Digoxin 0.25 MG TABLET PO SCH (09:13)
[2016-07-09] MEDS: Aspirin 81 MG TAB.CHEW PO SCH (09:13)
[2016-07-09] MEDS: Loratadine 10 MG TABLET PO SCH (09:13)
[2016-07-09] MEDS: MOM Conc 10 ML UD.LIQ PO SCH (09:14)
--- NOTE | 2016-07-09 11:33 | Internal Med Progress Note ---
Date of Encounter: 07/09/16 Time of Encounter: 11:31 - Assessment and plan (1) H/O: CVA (cerebrovascular accident) Current Visit: Yes Status: Acute Assessment and plan: Patient has had some interval improvement. He was able to walk in the parallel bars today. Fatigue remains a major issue. Patient is suffering from some depression. Patient is max A for transfers. ADLs vary from mod I to max assist. He has had some improvement in his hand coordination. Patient requires verbal cues and supervision for feeding. Patient varies in his level arousal and function from day to day. Patient complains of lower back pain which impairs his function. (2) Physical deconditioning Current Visit: Yes Status: Acute Assessment and plan: PT OT continue to work on in proving ADL. all - Time Spent With Patient less than 15 minutes - Subjective Interval history: Still complains of generalized weakness. No new voiced complaint. No shortness of breath. No chest pain. No headache. Complains of feeling sleepy. Complains of back pain. - Constitutional Vitals: Temp Pulse Resp BP Pulse Ox 97.3 F L 70 18 164/80 97 07/09/16 07:15 07/09/16 07:15 07/09/16 07:15 07/09/16 07:15 07/09/16 07:15 General appearance: Present: A&O X 2, mild distress, answers questions appropriately - Respiratory Respiratory exam: Present: CTAB. Absent: accessory muscle use, rales, rhonchi, wheezes - Cardiovascular Cardiovascular exam: Present: RRR, +S1, +S2. Absent: diastolic murmur, gallop, rubs, systolic murmur - GI/Abdominal GI/Abdominal exam: Present: normal bowel sounds, soft, no peritoneal signs. Absent: distended, tenderness - Extremities Exam Extremities exam: Present: warm, radial pulses palpable and symetrical. Absent : calf tenderness, cyanotic, pedal edema - Expanded Neurological Exam Speech: Present: garbled - Skin Skin exam: Present: dry, intact Internal Medicine: Result - Labs CBC & Chem 7: 07/04/16 05:35 07/04/16 05:35 - ABG Interpretation ABG results: PT/INR, D-dimer PT 30.9 Seconds (9.4-12.1) H 07/09/16 05:15 Consult Discharge Plan - Plan Referrals: Jody Blanco, LABORER CEMENT GUN PLACING [Primary Care Provider] -
[2016-07-09] MEDS: *HR* Warfarin 2 MG TABLET PO SCH (17:42)
--- NOTE | 2016-07-10 01:47 | Internal Med Progress Note ---
Date of Encounter: 07/10/16 Time of Encounter: 09:03 - Assessment and plan (1) H/O: CVA (cerebrovascular accident) Current Visit: Yes Status: Acute Assessment and plan: Patient has had some interval improvement. He was able to walk in the parallel bars today. Fatigue remains a major issue. Patient is suffering from some depression. Patient is max A for transfers. ADLs vary from mod I to max assist. He has had some improvement in his hand coordination. Patient requires verbal cues and supervision for feeding. Patient varies in his level arousal and function from day to day. Patient complains of lower back pain which impairs his function. (2) Physical deconditioning Current Visit: Yes Status: Acute Assessment and plan: PT OT continue to work on in proving ADL. all - Time Spent With Patient less than 15 minutes - Subjective Interval history: Still complains of generalized weakness. Could not sleep last night. No new voiced complaint. No shortness of breath. No chest pain. No headache. Complains of feeling sleepy. Complains of back pain. - Constitutional Vitals: Temp Pulse Resp BP Pulse Ox 98.3 F 62 16 127/71 97 07/09/16 18:47 07/09/16 18:47 07/09/16 18:47 07/09/16 18:47 07/09/16 18:47 General appearance: Present: A&O X 2, mild distress - Respiratory Respiratory exam: Present: CTAB. Absent: accessory muscle use, rales, rhonchi, wheezes - Cardiovascular Cardiovascular exam: Present: RRR, +S1, +S2. Absent: diastolic murmur, gallop, rubs, systolic murmur - GI/Abdominal GI/Abdominal exam: Present: normal bowel sounds, soft, no peritoneal signs. Absent: distended, tenderness Internal Medicine: Result - Labs CBC & Chem 7: 07/04/16 05:35 07/04/16 05:35 - ABG Interpretation ABG results: PT/INR, D-dimer PT 30.9 Seconds (9.4-12.1) H 07/09/16 05:15 Consult Discharge Plan - Plan Referrals: Jody Blanco, OXIDATION ENGINEER [Primary Care Provider] -
[2016-07-10 05:16] LABS: INR 2.6; Prothrombin Time 28.8 Seconds (9.4-12.1)
[2016-07-10] MEDS: *HR* Digoxin 0.25 MG TABLET PO SCH (08:29)
[2016-07-10] MEDS: MOM Conc 10 ML UD.LIQ PO SCH (08:29)
[2016-07-10] MEDS: Loratadine 10 MG TABLET PO SCH (08:29)
[2016-07-10] MEDS: Aspirin 81 MG TAB.CHEW PO SCH (08:29)
[2016-07-10] MEDS: *HR* Warfarin 2 MG TABLET PO SCH (18:13)
[2016-07-10] MEDS: *HR* HYDROcodone/Acet 5/325 mg TABLET PO PRN (21:38)
[2016-07-11 05:44] LABS: Basophils # 0.1 K/mcL (0.0-0.2); Basophils % 0.5 %; Eosinophils # 0.3 K/mcL (0.0-0.6); Eosinophils % 3.2 %; Hematocrit 42.2 % (37.5-50.1); Immature Granulocytes % 0.5 % (0-4); Lymphocytes # 1.7 K/mcL (0.6-4.6); Lymphocytes % 16.6 %; Mean Corpuscular HGB Conc 33.2 g/dL (31.6-35.5); Mean Corpuscular Hemoglobin 27.5 pg (28.0-33.3); Mean Corpuscular Volume 82.7 fL (83.0-100.0); Mean Platelet Volume 11.5 fL (9.4-12.4); Monocytes # 0.9 K/mcL (0.0-1.3); Monocytes % 8.7 %; Neutrophils # 7.1 K/mcL (1.6-8.9); Platelet Count 231 K/mcL (140-400); Red Cell Distribution Width 13.3 % (11.5-14.5); Segmented Neutrophils % 70.5 %
[2016-07-11 05:45] LABS: INR 2.6; Prothrombin Time 28.8 Seconds (9.4-12.1)
[2016-07-11 05:53] LABS: BUN/Creatinine Ratio 20 (6-26); Blood Urea Nitrogen 17 mg/dL (8-26); Calcium 8.8 mg/dL (8.6-10.8); Carbon Dioxide 22 mEq/L (19-29); Chloride 108 mEq/L (98-109); Glucose 120 mg/dL (70-99); Osmolality,Calculated 291 (280-300); Sodium 139 mEq/L (136-145); eGFR For African Americans > 60 (> 60); eGFR For Non-African Americans > 60 (> 60)
[2016-07-11] MEDS: Aspirin 81 MG TAB.CHEW PO SCH (08:52)
[2016-07-11] MEDS: *HR* Digoxin 0.25 MG TABLET PO SCH (08:52)
[2016-07-11] MEDS: Loratadine 10 MG TABLET PO SCH (08:52)
[2016-07-11] MEDS: MOM Conc 10 ML UD.LIQ PO SCH (08:53)
--- NOTE | 2016-07-11 13:36 | Internal Med Progress Note ---
Date of Encounter: 07/11/16 Time of Encounter: 13:35 - Assessment and plan (1) H/O: CVA (cerebrovascular accident) Current Visit: Yes Status: Acute Assessment and plan: Patient had CVA. (2) Physical deconditioning Current Visit: Yes Status: Acute Assessment and plan: On the deconditioning is long-term. - Time Spent With Patient less than 15 minutes - Subjective Interval history: Patient continues to be more alert. Family has elected to go to and as soon as we get a bed clearance insurance approval will transfer patient - Constitutional Vitals: Temp Pulse Resp BP Pulse Ox 97.4 F L 86 16 174/87 99 07/11/16 07:00 07/11/16 07:00 07/11/16 07:00 07/11/16 07:00 07/11/16 07:00 General appearance: Present: A&O X 2, mild distress - Head Head exam: Present: atraumatic, normal inspection, normocephalic - Neck Neck exam general surgery: Present: supple, trachea midline. Absent: lymphadenopathy - Respiratory Respiratory exam: Present: CTAB. Absent: accessory muscle use, rales, rhonchi, wheezes - Cardiovascular Cardiovascular exam: Present: RRR, +S1, +S2. Absent: diastolic murmur, gallop, rubs, systolic murmur Internal Medicine: Result - Labs CBC & Chem 7: 07/11/16 05:25 07/11/16 05:25 Labs: Short CBC 07/11/16 Range/Units 05:25 WBC 10.1 (4.3-11.1) K/mcL Hgb 14.0 (12.9-16.9) g/dL Hct 42.2 (37.5-50.1) % Plt Count 231 (140-400) K/mcL Neutrophils # 7.1 (1.6-8.9) K/mcL BMP 07/11/16 05:25 Sodium 139 Potassium 4.0 Chloride 108 Carbon Dioxide 22 BUN 17 Creatinine 0.84 Glucose 120 H Calcium 8.8 Lab is stable - ABG Interpretation ABG results: PT/INR, D-dimer PT 28.8 Seconds (9.4-12.1) H 07/11/16 05:25 Consult Discharge Plan - Plan Referrals: Jody Blanco, RORY [Primary Care Provider] -
[2016-07-11] MEDS: *HR* Warfarin 2 MG TABLET PO SCH (17:56)
[2016-07-11] MEDS: *HR* HYDROcodone/Acet 5/325 mg TABLET PO PRN (21:42)
[2016-07-12 05:20] LABS: INR 2.5; Prothrombin Time 28.2 Seconds (9.4-12.1)
[2016-07-12] MEDS: MOM Conc 10 ML UD.LIQ PO SCH (08:36)
[2016-07-12] MEDS: *HR* Digoxin 0.25 MG TABLET PO SCH (08:37)
[2016-07-12] MEDS: Loratadine 10 MG TABLET PO SCH (08:37)
[2016-07-12] MEDS: Aspirin 81 MG TAB.CHEW PO SCH (08:37)
--- NOTE | 2016-07-12 13:21 | Internal Med Progress Note ---
Date of Encounter: 07/12/16 Time of Encounter: 13:19 - Assessment and plan (1) H/O: CVA (cerebrovascular accident) Current Visit: Yes Status: Acute Assessment and plan: History of CVAs why patient is here (2) Physical deconditioning Current Visit: Yes Status: Acute Assessment and plan: Patient was pretty deconditioning prior to his CVA - Time Spent With Patient less than 15 minutes - Subjective Interval history: Working with the therapist. Attitude seems pretty good. - Constitutional Vitals: Temp Pulse Resp BP Pulse Ox 97.4 F L 66 16 164/78 95 07/12/16 07:00 07/12/16 07:00 07/12/16 07:00 07/12/16 07:00 07/12/16 07:00 General appearance: Present: A&O X 2, mild distress - Head Head exam: Present: atraumatic, normal inspection, normocephalic - Neck Neck exam general surgery: Present: supple, trachea midline. Absent: lymphadenopathy - Respiratory Respiratory exam: Present: CTAB. Absent: accessory muscle use, rales, rhonchi, wheezes - Cardiovascular Cardiovascular exam: Present: RRR, +S1, +S2. Absent: diastolic murmur, gallop, rubs, systolic murmur - GI/Abdominal GI/Abdominal exam: Present: normal bowel sounds, soft, no peritoneal signs. Absent: distended, tenderness Internal Medicine: Result - Labs CBC & Chem 7: 07/11/16 05:25 07/11/16 05:25 Labs: Labs look stable - ABG Interpretation ABG results: PT/INR, D-dimer PT 28.2 Seconds (9.4-12.1) H 07/12/16 05:10 Consult Discharge Plan - Plan Referrals: Jody Blanco, [facility] [Primary Care Provider] -
--- NOTE | 2016-07-12 13:54 | Discharge Summary ---
Date of Encounter: 07/12/16 Time of Encounter: 13:52 - Discharge Diagnosis (1) H/O: CVA (cerebrovascular accident) Priority: Primary Status: Acute Comments: Patient has a lot of microvascular changes in addition to a recent CVA (2) Physical deconditioning Priority: Primary Status: Acute Comments: Apparently since his he is not much but sit and watch TV - Discharge Medications Home Medications: Digoxin [Lanoxin] 0.25 mg PO DAILY 04/14/15 [History] Donepezil [Aricept] 5 mg PO HS 04/14/15 [History] Metoprolol [Lopressor] 50 mg PO BID 04/14/15 [History] Omeprazole [PriLOSEC] 40 mg PO DAILY 04/14/15 [History] Simvastatin [Zocor] 40 mg PO HS 04/14/15 [History] Tamsulosin [Flomax] 0.4 mg PO DAILY 04/14/15 [History] Warfarin [Coumadin] 2.5 mg PO 1800 04/14/15 [History] Aspirin 81 mg PO DAILY 06/27/16 [History] Cetirizine HCl [Zyrtec] 10 mg PO DAILY 06/27/16 [History] TraZODone 50 mg PO HS 06/27/16 [History] Allergies/Adverse Reactions: Allergies No Known Allergies Allergy (Verified 04/14/15 19:27) Date of admission: 06/27/16 21:00 Primary care physician: Kelli Lopez Consults: 06/27/16 21:19 Consult to Occupational Therapy [CONS] Routine Comment: Evaluate, develop and implement POC Consult to Physical Therapy [CONS] Routine Comment: Evaluate, develop and implement POC Consult to Recreational Therapy [CONS] Routine Comment: Evaluate, develop and implement POC Consult to Welding Machine Operator Submerged Arc [CONS] Routine Reason for SW Consult: d/c planning Consult to Speech Therapy [CONS] Routine Comment: Evaluate, develop and implement POC Reason for Consult: speech impairment Call Completed: Yes 06/27/16 23:13 Consult to Psychology [CONS] Routine Consulting Provider: Yee Pineda Reason for Consult: s/p CVA Call Completed: No Discharging clinician: Kannan Castillo Anticipated date of discharge: 07/13/16 - Patient Status Disposition: Transfer SNF Condition: Fair Overall status at discharge: patient is not back to baseline - Discharge Instructions Follow Up With: Jody Blanco, CARETAKER [Primary Care Provider] - - Diet and Activity Activity: as per physical therapy Diet: advance to your usual diet, diabetic diet Interval History: Patient was brought in for rehabilitation. Hospital course: Mr. Noe is a 86 year old male Patient is much more alert and cooperative right now but he is little depressed feeling like he is useless does not be a burden. So he needs daughter of complete occlusion of the ECF will continue to get more therapy. - Time Spent with Patient Total time spent providing and/or coordinating discharge services: Less than 30 minutes - Constitutional Vitals: Temp Pulse Resp BP Pulse Ox 97.4 F L 66 16 164/78 95 07/12/16 07:00 07/12/16 07:00 07/12/16 07:00 07/12/16 07:00 07/12/16 07:00 General appearance: Present: A&O X 2, mild distress - Head Head exam: Present: atraumatic, normal inspection, normocephalic - Neck Neck exam general surgery: Present: supple, trachea midline. Absent: lymphadenopathy - Respiratory Respiratory exam: Present: CTAB. Absent: accessory muscle use, rales, rhonchi, wheezes - Cardiovascular Cardiovascular exam: Present: RRR, +S1, +S2. Absent: diastolic murmur, gallop, rubs, systolic murmur
--- NOTE | 2016-07-12 13:56 | Physician Discharge Referral ---
ExtendedCare Referral Info Transfer To: ECF Provider in Charge after Transfer: PCP Institutional Level of Care: Skilled - Diagnosis (1) H/O: CVA (cerebrovascular accident) Priority: Primary Status: Acute (2) Physical deconditioning Priority: Primary Status: Acute Prognosis: Fair Aware of Diagnosis: Patient Aware of Prognosis: Patient - Transfer Medications Home Medications: Digoxin [Lanoxin] 0.25 mg PO DAILY 04/14/15 [History] Donepezil [Aricept] 5 mg PO HS 04/14/15 [History] Metoprolol [Lopressor] 50 mg PO BID 04/14/15 [History] Omeprazole [PriLOSEC] 40 mg PO DAILY 04/14/15 [History] Simvastatin [Zocor] 40 mg PO HS 04/14/15 [History] Tamsulosin [Flomax] 0.4 mg PO DAILY 04/14/15 [History] Warfarin [Coumadin] 2.5 mg PO 1800 04/14/15 [History] Aspirin 81 mg PO DAILY 06/27/16 [History] Cetirizine HCl [Zyrtec] 10 mg PO DAILY 06/27/16 [History] TraZODone 50 mg PO HS 06/27/16 [History] Allergies/Adverse Reactions: Allergies No Known Allergies Allergy (Verified 04/14/15 19:27) - Respiratory Orders Smoking Cessation: Smoking cessation has been advised. For more information, call the [place] Tobacco Quit Line at 2-910-RZNQ-NOW. CERTIFICATION: I certify that the transfer of the above named patient to an Extended Care Facility is necessary for the continuing treatment of the diagnosis listed. The above information is true and accurate reflection of patient's current condition. Confidential - Redisclosure prohibited without a patient's written consent.
[2016-07-12] MEDS: *HR* HYDROcodone/Acet 5/325 mg TABLET PO PRN (16:28)
[2016-07-12] MEDS: *HR* Warfarin 2 MG TABLET PO SCH (17:29)
[2016-07-13 05:40] LABS: INR 2.4
[2016-07-13 07:06] VITALS: BP 153/84
[2016-07-13] MEDS: Aspirin 81 MG TAB.CHEW PO SCH (08:18)
[2016-07-13] MEDS: MOM Conc 10 ML UD.LIQ PO SCH (08:18)
[2016-07-13] MEDS: *HR* Digoxin 0.25 MG TABLET PO SCH (08:19)
[2016-07-13] MEDS: Loratadine 10 MG TABLET PO SCH (08:19)
== END 2016-07-13 16:35 | DRG 57 ==
LOC: INPGRE 21:00
PROVIDERS: ADMIT Internal Medicine; ATTEND Internal Medicine